=== PATIENT | male | born 1985 | race Caucasian/White ===

== ENCOUNTER 2023-03-21 09:10 | Emergency (ER) | payer MEDICAID ==
[~2023-03-21] VITALS: Ht 190.5 cm; Wt 131.5 kg
--- NOTE | 2023-03-21 09:20 | NUR ---
Placed in room 7 . Placed on conveyor monitor, blood pressure machine and pulse oximeter. To gown for exam. Side rails up. Report given to JOSE Hsu.
[2023-03-21 09:22] VITALS: BP_SYST 164
--- NOTE | 2023-03-21 09:25 | NUR ---
PT BIB SELF AWAKE AND ALERT AOX4, NOP SOB OR DISTRESS. PT C/O STRANGE PULLING FEELING IN R CALF. PT DENIES PAIN AT CURRENT TIME. PT STATED ITS BEEN GOING ON FOR ABOUT X30 DAYS. PT DENIES TRAUMA. PT HAS HX OF DM2. PT DENIES SX.
--- NOTE | 2023-03-21 09:26 | NUR ---
MD DR CANTRELL AT BEDSIDE
[2023-03-21 10:42] LABS: BASOPHILS % (AUTO) 0.4 % (0.0-2.0); EOSINOPHILS # (AUTO) 0.1 K/uL (0.0-0.4); HEMATOCRIT 48.2 % (36-54); HEMOGLOBIN 16.3 g/dL (14.0-18.0); LYMPHOCYTES # (AUTO) 1.9 K/uL (1.0-5.5); LYMPHOCYTES % (AUTO) 28.8 % (20.5-51.5); MEAN CORPUSCULAR HEMOGLOBIN 29 pg (27-31); MEAN CORPUSCULAR HGB CONC 34 % (32-36); MEAN CORPUSCULAR VOLUME 85 fL (79.0-98.0); MONOCYTES # (AUTO) 0.5 K/uL (0.0-1.0); MONOCYTES % (AUTO) 7.9 % (1.7-9.3); NEUTROPHILS # (AUTO) 4.2 K/uL (1.8-7.7); NEUTROPHILS % (AUTO) 61.9 % (40.0-70.0); PLATELET COUNT (AUTO) 102 K/uL (130-430); RED BLOOD CELL COUNT(AUTO) 5.68 MIL/uL (4.2-6.2); RED CELL DISTRIBUTION WIDTH 13.7 % (9.0-15.0); WHITE BLOOD COUNT (AUTO) 6.8 K/uL (4.8-10.8)
[2023-03-21 10:53] LABS: CALCIUM 9.1 mg/dL (8.4-11.0); CREATININE 0.74 mg/dL (0.55-1.30)
[2023-03-21 10:58] LABS: C-REACTIVE PROTEIN QUANT 0.3 mg/dL (0-0.5); TOTAL BILIRUBIN 0.6 mg/dL (0.0-1.0)
[2023-03-21] MEDS ORDERED: TRAM50TA2 PO (11:17)
[2023-03-21] MEDS ORDERED: IBUP-1971 PO (11:17)
[2023-03-21 11:31] VITALS: BP_SYST 125
--- NOTE | 2023-03-21 11:33 | NUR ---
Patient given written and verbal discharge instructions and verbalizes understanding. ER MD DR CANTRELL discussed with patient the results and treatment provided. Patient in stable condition. ID arm band removed. Rx of MOTRIN AND TRAMODOL given. Patient educated on pain management and to follow up with PMD. Pain Scale 2/10. Opportunity for questions provided and answered. Medication side effect fact sheet provided.
== END 2023-03-21 11:33 | disposition home or self-care (01) ==
LOC: SED 09:10
DX: S86.811A Strain of other muscle(s) and tendon(s) at lower leg level, right leg, initial encounter (principal); Z79.899 Other long term (current) drug therapy; X58.XXXA Exposure to other specified factors, initial encounter; Y93.89 Activity, other specified; Y92.89 Other specified places as the place of occurrence of the external cause; Y99.8 Other external cause status
CPT/HCPCS: 36415; 80053; 83605; 85025; 86140; 93971; 99284